=== PATIENT | male | born 2005 | race Caucasian/White ===

== ENCOUNTER 2024-03-11 07:20 | Emergency (ER) | payer BC ==
[~2024-03-11] VITALS: Ht 185.4 cm; Wt 81.6 kg
[~2024-03-11 07:20] MED LIST: MOTRIN CHI100 MG/5 M PO; PHENERGAN12.5 MG RC; ZITHROMAX100 MG/5 M PO; Zithromax200 MG/5 M PO
[2024-03-11] MEDS ORDERED: IBUPROFEN 800 MG TAB PO ONE (07:35)
[2024-03-11] MEDS ORDERED: AVPAK AZITHROM250 M1 PO (08:52)
[2024-03-11 10:30] VITALS: BP 137/90
[2024-03-11] MEDS ORDERED: SODIUM CHLORIDE 0.9% 2,000 ML IV ONE (14:59)
[2024-03-11] MEDS ORDERED: SODIUM BICARBONATE 50 MEQ/50 ML VIAL IV ONE (15:00)
[2024-03-11] MEDS ORDERED: SODIUM BICARBONATE 150 MEQ in SODIUM CHLORIDE 0.45% 1,000 ML IV SCH (15:30)
== END 2024-03-11 09:12 | disposition home or self-care (01) ==
LOC: ED 07:20
DX: J40 Bronchitis, not specified as acute or chronic (principal); Z20.822 Contact with and (suspected) exposure to COVID-19; Z88.0 Allergy status to penicillin; Z98.890 Other specified postprocedural states

== ENCOUNTER → 2024-03-23 | Outpatient (CLI) | payer BC ==
[~2024-03-23] MED LIST changes: +AVPAK AZITHROM250 M1 PO
[2024-03-23 14:24] LABS: BASO # 0.1 10*3/uL (0.0-0.1); BASO % 0.6 % (0.0-1.0); EOS # 0.1 10*3/uL (0.0-0.4); EOS % 1.3 % (1.0-4.0); HEMATOCRIT 29.9 % (42.0-52.0); MEAN CELL VOLUME 86.7 fl (80.0-94.0); MEAN CORPUSCULAR HGB CONC 33.4 g/dl (33.0-37.0); MEAN PLATELET VOLUME 8.5 fl (9.6-12.3); MONO # 1.1 10*3/uL (0.1-1.0); MONO % 13.4 % (3.0-9.0); NEUT # 5.1 10*3/uL (2.3-7.9); NEUT % 63.1 % (47.0-73.0); PLATELET COUNT AUTOMATED 383 10*3/uL (130-400); RED BLOOD COUNT 3.45 10*6/uL (4.50-5.90); RED CELL DISTRI WIDTH 13.2 % (0-14.5); WHITE BLOOD COUNT 8.2 10*3/uL (4.8-10.8)
== END | disposition home or self-care (01) ==
LOC: LAB 13:53
PROVIDERS: ATTEND Family Medicine
DX: E10.9 Type 1 diabetes mellitus without complications (principal)